=== PATIENT | female | born 1980 | race Caucasian/White ===

== ENCOUNTER 2024-03-28 17:16 | Emergency (ER) | payer OTHER ==
[~2024-03-28] VITALS: Ht 167.6 cm; Wt 58.1 kg
[2024-03-28 18:08] VITALS: BP 141/99
== END 2024-03-28 18:12 | disposition home or self-care (01) ==
LOC: ER 17:16
DX: F15.10 Other stimulant abuse, uncomplicated (principal)
CPT/HCPCS: 99282

== ENCOUNTER 2024-04-12 10:07 | Emergency (ER) | payer OTHER ==
[~2024-04-12] VITALS: Ht 167.6 cm; Wt 58.1 kg
[2024-04-12 10:35] VITALS: BP 129/101
[2024-04-12] MEDS ORDERED: ABILIFY MYCITE10 M2 PO (11:09)
[2024-04-12] MEDS ORDERED: Prozac40 MG PO (11:09)
[2024-04-12] MEDS ORDERED: CATAPRES0.1 MG PO (11:09)
[2024-04-12] MEDS ORDERED: HYDHCL25 PO (11:09)
== END 2024-04-12 11:40 | disposition home or self-care (01) ==
LOC: ER 10:07
DX: Z76.0 Encounter for issue of repeat prescription (principal)
CPT/HCPCS: 99281